=== PATIENT | female | born 1995 | race Two or more races ===

== ENCOUNTER 2018-11-03 03:40 | Emergency (ER) | payer SELFPAY ==
[2018-11-03] MEDS ORDERED: KETOROLAC TROMETHAMINE 60 MG/2 ML SDV IM ONE (04:16)
[2018-11-03] MEDS ORDERED: DEXAMETHASONE SOD PHOS INJ 10 MG/1 ML VIAL IM ONE (04:17)
--- NOTE | 2018-11-03 04:19 | ER Document Report ---
ED General - General Chief Complaint: Sore Throat Stated Complaint: SORE THROAT Time Seen by Provider: 11/03/18 04:07 Primary Care Provider: DOUG LU DO [NO LOCAL MD] - Follow up in 3-5 days (OR YOUR PRIMARY CARE. ) Notes: Patient is a 22-year-old female that presents to the emergency department for chief complaint of sore throat. Patient states that his symptoms started on Sunday, and seem to get worse since then. She is been having pain with swallowing, seem to be worse in the right compared to the left. Denies any any cough, fevers, chills, night sweats. She has had some ear pressure bilaterally, but denies any rhinorrhea, or sinus congestion. She denies any headache at this time. Currently rates her pain as a 2 out of 10 describes as an ache in her throat. Denies any sick contacts that she is aware of. Past Medical History: Denies chronic medical conditions Past Surgical History: Denies surgical history Social History: Admits to occasional tobacco use, denies illicit drug use. Or alcohol use. Family History: Reviewed and noncontributory for presenting illness Allergies: Reviewed, see documented allergy list. REVIEW OF SYSTEMS: Other than noted above, the 12 point review of systems was reviewed with the patient and were negative, all pertinent findings are included in the HPI. PHYSICAL EXAMINATION: Vital signs reviewed, nursing noted reviewed. GENERAL: Well-appearing, well-nourished and in no acute distress. HEAD: Atraumatic, normocephalic. EYES: Eyes appear normal, sclera anicteric, conjunctiva are normal. ENT: Moist mucous membranes. Mild bilateral tonsillar edema and erythema, no exudates appreciated. Uvula midline. TMs appear normal bilaterally. NECK: Normal range of motion, supple without lymphadenopathy LUNGS: Breath sounds clear to auscultation bilaterally and equal. No wheezes rales or rhonchi. HEART: Regular rate and rhythm without murmurs EXTREMITIES: Nontender, good range of motion, no pitting or edema. NEUROLOGICAL: No focal neurological deficits. Moves all extremities spontaneously Motor and sensory grossly intact on exam. PSYCH: Normal mood, normal affect. SKIN: Warm, Dry, normal turgor, no rashes or lesions noted on exposed skin TRAVEL OUTSIDE OF THE [place] IN LAST 30 DAYS: No - Related Data Allergies/Adverse Reactions: No Known Allergies Allergy (Unverified 03/25/18 01:44) Past Medical History - Social History Smoking Status: Current Some Day Smoker Frequency of alcohol use: daily Family History: Reviewed & Not Pertinent Patient has suicidal ideation: No Patient has homicidal ideation: No Renal/ Medical History: Denies: Hx Peritoneal Dialysis Physical Exam - Vital signs Vitals: Temp Pulse Resp BP Pulse Ox 98.1 F 77 16 121/89 H 100 11/03/18 03:44 11/03/18 03:44 11/03/18 03:44 11/03/18 03:44 11/03/18 03:44 Course - Re-evaluation Re-evalutation: Patient seen and examined vital signs reviewed. Patient was evaluated and treated as appropriate for the patient's presenting symptoms and complaint, with consideration of any critical or life threatening conditions that may be associated with their obtained history and exam as noted above. Patient was treated with IM Toradol and Decadron The patient was re-evaluated and was stable Evaluation was most consistent with acute pharyngitis, strep testing negative Plan of care was discussed with the patient at this point, after careful c onsideration I feel that that patient can be discharged from the emergency department, the patient was educated treatments and reasons to return to the emergency department based on their presumed diagnosis as noted above, they were advised to followup with a primary care physician in 2-3 days. Patient was agreeable to plan of care. *Note is created using voice recognition software and may contain spelling, syntax or grammatical errors. Laboratory 11/03/18 04:16 Group A Strep Rapid NEGATIVE - Vital Signs Vital signs: Temp Pulse Resp BP Pulse Ox 98.1 F 77 16 121/89 H 100 11/03/18 03:44 11/03/18 03:44 11/03/18 03:44 11/03/18 03:44 11/03/18 03:44 Discharge - Discharge Clinical Impression: Acute pharyngitis Qualifiers: Pharyngitis/tonsillitis etiology: unspecified etiology Qualified Code(s): J02.9 - Acute pharyngitis, unspecified Condition: Stable Disposition: HOME, SELF-CARE Instructions: Sore Throat ([facility]) Additional Instructions: You may take [id number] ibuprofen, to help with inflammation, the steroid you are given in the emergency department should help. You can use [id number] lozenges as well, or Chloraseptic sprays, to help alleviate some of your symptoms over the next several days. Referrals: DOUG LU, [NO LOCAL MD] - Follow up in 3-5 days (OR YOUR PRIMARY CARE. )
[2018-11-03 05:34] VITALS: BP 126/88
== END 2018-11-03 05:34 | disposition home or self-care (01) ==
LOC: ER 03:40
DX: J02.9 Acute pharyngitis, unspecified (principal); F17.200 Nicotine dependence, unspecified, uncomplicated
CPT/HCPCS: 99283; 96372; 87070; 87880; J1885; J1100

== ENCOUNTER 2018-11-05 15:04 | Emergency (ER) | payer SELFPAY ==
[2018-11-05 15:11] VITALS: BP 126/73
[2018-11-05] MEDS ORDERED: LIDOCAINE 2% VISCOUS SOLN 20 ML UDCUP PO ONE (15:54)
[2018-11-05] MEDS ORDERED: KETOROLAC TROMETHAMINE 60 MG/2 ML SDV IM ONE (15:54)
--- NOTE | 2018-11-05 15:57 | ER Document Report ---
HPI - HPI Patient complains to provider of: Sore throat Time Seen by Provider: 11/05/18 15:40 Onset/Duration: Persistent Quality of pain: Achy Pain Level: 4 Context: Patient presents complaining of 5-day history of sore throat. Patient was here 2 days ago and had a negative strep test. Patient was treated with Toradol and Decadron is requesting for repeat of these medications today. Patient does report a history of acid reflux although states she is not on any medications. Patient also states that she has a history of allergies and only just recently restarted taking her antihistamine medication. Associated Symptoms: Rhinnorhea, Sore throat. denies: Fever Exacerbated by: Denies Relieved by: Denies Similar symptoms previously: Yes Recently seen / treated by doctor: Yes - ROS ROS below otherwise negative: Yes Systems Reviewed and Negative: Yes All other systems reviewed and negative - CONSTITUTIONAL Constitutional: DENIES: Fever - EENT EENT: REPORTS: Sore Throat, Nasal Drainage-Clear. DENIES: Ear Pain - RESPIRATORY Respiratory: DENIES: Coughing - GASTROINTESTINAL Gastrointestinal: DENIES: Abdominal Pain, Nausea, Patient vomiting - REPRODUCTIVE Reproductive: DENIES: : - DERM Skin Color: Normal Skin Problems: None Past Medical History - General Information source: Patient - Social History Smoking Status: Current Every Day Smoker Smoking Education Provided: Yes Frequency of alcohol use: None Drug Abuse: None Occupation: Retail Family History: Reviewed & Not Pertinent Renal/ Medical History: Denies: Hx Peritoneal Dialysis GI Medical History: Reports: Hx Gastroesophageal Reflux Disease Surgical Hx: Negative Vertical Provider Document - CONSTITUTIONAL Agree With Documented VS: Yes Exam Limitations: No Limitations General Appearance: WD/WN, No Apparent Distress - INFECTION CONTROL TRAVEL OUTSIDE OF THE [place] IN LAST 30 DAYS: No - HEENT HEENT: Atraumatic, Normocephalic, Pharyngeal Tenderness, Pharyngeal Erythema. negative: Pharyngeal Exudate, Tympanic Membrane Red, Tympanic Membrane Bulging - NECK Neck: Lymphadenopathy-Left, Lymphadenopathy-Right - RESPIRATORY Respiratory: Breath Sounds Normal, No Respiratory Distress - CARDIOVASCULAR Cardiovascular: Regular Rate, Regular Rhythm - BACK Back: Normal Inspection - MUSCULOSKELETAL/EXTREMETIES Musculoskeletal/Extremeties: MAEW - NEURO Level of Consciousness: Awake, Alert, Appropriate Motor/Sensory: No Motor Deficit - DERM Integumentary: Warm, Dry, No Rash Course - Re-evaluation Re-evalutation: 11/05/18 16:51 Patient's rapid strep test negative as well as her mono test. Patient without any potential airway compromise. Patient able to manage oral secretions. Discussed with patient possibility of postnasal drip causing her symptoms as she does feel like she is having an allergy flare. Patient encouraged to take her Zyrtec daily and add a nasal corticosteroid as well. Patient also does have a history of acid reflux and is not currently on any medications. Good return precautions discussed with patient. Throat culture is pending at this time. - Vital Signs Vital signs: Temp Pulse Resp BP Pulse Ox 98.1 F 71 18 126/73 H 100 11/05/18 15:10 11/05/18 15:10 11/05/18 15:10 11/05/18 15:10 11/05/18 15:10 - Laboratory Laboratory results interpreted by me: 11/05/18 16:52 Labs- Entire Visit 11/05/18 11/05/18 16:14 16:20 Monotest NEGATIVE Group A Strep Rapid NEGATIVE Discharge - Discharge Clinical Impression: Post-nasal drip Acute pharyngitis Qualifiers: Pharyngitis/tonsillitis etiology: unspecified etiology Qualified Code(s): J02.9 - Acute pharyngitis, unspecified GERD (gastroesophageal reflux disease) Qualifiers: Esophagitis presence: esophagitis presence not specified Qualified Code(s): K21.9 - Gastro-esophageal reflux disease without esophagitis Condition: Stable Disposition: HOME, SELF-CARE Instructions: Nasal Corticosteroid Inhaler ([facility]), Reflux Disease (GERD) ([facility]), Sore Throat ([facility]) Additional Instructions: Return immediately for any new or worsening symptoms Followup with your primary care provider, call tomorrow to make a followup appointment Throat culture is pending, we will call if you need any different treatment. Continue to take your Zyrtec daily as prescribed Follow-up with an gear and spline grinder for any persistent problems. Prescriptions: Fluticasone Propionate [Flonase Nasal [place] 50 Mcg/[place] 16 gm] 2 spray NASL DAILY #1 bottle Naproxen [Naprosyn 250 Nmg Tablet] 1 tab PO BID #14 tablet Omeprazole Magnesium [Prilosec Otc] 20 mg PO DAILY #15 tablet.dr Forms: Smoking Cessation Education, Return to Work Referrals: [facility] [Provider Group] - Follow up as needed
== END 2018-11-05 17:00 | disposition home or self-care (01) ==
LOC: ER 15:04
DX: J02.9 Acute pharyngitis, unspecified (principal); K21.9 Gastro-esophageal reflux disease without esophagitis; R09.82 Postnasal drip; R09.89 Other specified symptoms and signs involving the circulatory and respiratory systems; Z79.899 Other long term (current) drug therapy; F17.200 Nicotine dependence, unspecified, uncomplicated
CPT/HCPCS: 99283; 96372; 36415; 87070; 87880; 86308; J1885; J3490